=== PATIENT | female | born 1995 ===

== ENCOUNTER 2016-06-29 00:01 | Emergency (ER) | payer OTHER ==
[2016-06-29] MEDS ORDERED: OXYCODONE HCL 5 MG TABLET ONE (02:41)
[2016-06-29] MEDS ORDERED: IBUPROFEN 600 MG TABLET ONE (02:41)
== END 2016-06-29 03:35 | disposition home or self-care (01) ==
LOC: ED 00:01
DX: L02.213 Cutaneous abscess of chest wall (principal); J45.909 Unspecified asthma, uncomplicated